=== PATIENT | female | born 1955 | race Two or more races ===

== ENCOUNTER 2017-10-25 00:23 | Emergency (ER) | payer OTHER ==
[~2017-10-25] VITALS: Ht 152.4 cm; Wt 83.9 kg
--- NOTE | 2017-10-25 00:46 | ED.ADGEN ---
Past History Past Medical History: Hypertension Past Surgical History: Alcohol Use: None Drug Use: None Adult General Chief Complaint Chief Complaint " I have bad shoulder pain.. here on the rt.. I fell a couple weeks ago.. but pain is worse today.. I ve had this spasm before..." HPI HPI Patient is a 62 year old female who presents with Rt. shoulder and Trapezius pain. Pt. has had previous problems with muscle spasm and tocolysis and right shoulder and trapezius area. Patient currently has marked muscle spasms and right trapezius. No specific midline tenderness. Patient normally follows with Dr. Rivera. Distal neurovascular intact. Patient is right-hand dominant. Review of Systems Review of Systems Constitutional: Denies fever or chills [] Eyes: Denies change in visual acuity, redness, or eye pain [] HENT: Denies nasal congestion or sore throat [] Respiratory: Denies cough or shortness of breath [] Cardiovascular: No additional information not addressed in HPI [] GI: Denies abdominal pain, nausea, vomiting, bloody stools or diarrhea [] : Denies dysuria or hematuria [] Musculoskeletal: Complaints of severe protocols and muscle spasm right trapezius Integument: Denies rash or skin lesions [] Neurologic: Denies headache, focal weakness or sensory changes [] Endocrine: Denies polyuria or polydipsia [] All other systems were reviewed and found to be within normal limits, except as documented in this note. Family History Family History Noncontributory Current Medications Current Medications Current Medications Medications (Trade) Dose Ordered Sig/Yas Start Time Stop Time Status Last Admin Dose Admin Aspirin (Children'S Aspirin) 324 mg 1X ONCE 10/25/17 01:15 10/25/17 01:16 DC 10/25/17 01:18 324 MG Ketorolac Tromethamine (Toradol) 60 mg 1X ONCE 10/25/17 01:15 10/25/17 01:16 DC 10/25/17 01:19 60 MG Morphine Sulfate (Morphine 10mg Syringe) 10 mg 1X ONCE 10/25/17 01:15 18 01:16 DC 10/25/17 01:19 10 MG Orphenadrine Citrate (Norflex) 60 mg 1X ONCE 10/25/17 01:15 10/25/17 01:16 DC 10/25/17 01:19 60 MG See nursing for home meds Allergies Allergies Allergies Coded Allergies Type Severity Reaction Last Updated Verified No Known Drug Allergies 10/25/17 No Physical Exam Physical Exam Constitutional: In acute distress, non-toxic appearance. [] HENT: Normocephalic, atraumatic, bilateral external ears normal, oropharynx moist, no oral exudates, nose normal. [] Eyes: PERRLA, EOMI, conjunctiva normal, no discharge. [] Neck: Limited l range of motion, and tenderness, torticollis muscle spasm in right trapezius, no stridor. [] Cardiovascular:Heart rate regular rhythm, no murmur [] Lungs & Thorax: Bilateral breath sounds equal apexes on auscultation [] Abdomen: Bowel sounds normal, soft, no tenderness, no masses, no pulsatile masses. Obese. Old surgical scar. Skin: Warm, dry, no erythema, no rash. [] Back: No tenderness, no CVA tenderness. [] Extremities: Right shoulder tenderness, no cyanosis, no clubbing, ROM intact, no edema. Muscle spasms and trapezius area. 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 Neurologic: Alert and oriented X 3, normal motor function, normal sensory function, no focal deficits noted. [] Psychologic: Affect anxious, judgement normal, mood depressed Current Patient Data Vital Signs Vital Signs Date Time Temp Pulse Resp B/P (MAP) Pulse Ox O2 Delivery O2 Flow Rate FiO2 10/25/17 03:15 80 16 147/77 (100) 98 Room Air 10/25/17 01:30 98.2 Lab Results Laboratory Tests Test 10/25/17 01:30 10/25/17 02:00 White Blood Count 9.6 x10^3/uL (4.0-11.0) Red Blood Count 4.54 x10^6/uL (3.50-5.40) Hemoglobin 14.5 g/dL (12.0-15.5) Hematocrit 42.0 % (36.0-47.0) Mean Corpuscular Volume 93 fL (79-100) Mean Corpuscular Hemoglobin 32 pg (25-35) Mean Corpuscular Hemoglobin Concent 34 g/dL (31-37) Red Cell Distribution Width 13.1 % (11.5-14.5) Platelet Count 221 x10^3/uL (140-400) Neutrophils (%) (Auto) 66 % (31-73) Lymphocytes (%) (Auto) 25 % (24-48) Monocytes (%) (Auto) 6 % (0-9) Eosinophils (%) (Auto) 2 % (0-3) Basophils (%) (Auto) 0 % (0-3) Neutrophils # (Auto) 6.4 x10^3uL (1.8-7.7) Lymphocytes # (Auto) 2.4 x10^3/uL (1.0-4.8) Monocytes # (Auto) 0.6 x10^3/uL (0.0-1.1) Eosinophils # (Auto) 0.2 x10^3/uL (0.0-0.7) Basophils # (Auto) 0.0 x10^3/uL (0.0-0.2) Prothrombin Time 11.5 SEC (9.4-11.4) H Prothrombin Time INR 1.1 (0.9-1.1) PTT 26 SEC (23-33) Sodium Level 142 mmol/L (136-145) Potassium Level 3.8 mmol/L (3.5-5.1) Chloride Level 107 mmol/L (98-107) Carbon Dioxide Level 25 mmol/L (21-32) Anion Gap 10 (6-14) Blood Urea Nitrogen 17 mg/dL (7-20) Creatinine 0.8 mg/dL (0.6-1.0) Estimated GFR (Cockcroft-Gault) 72.7 Glucose Level 141 mg/dL (70-99) H Calcium Level 8.5 mg/dL (8.5-10.1) Magnesium Level 2.0 mg/dL (1.8-2.4) Total Bilirubin 0.6 mg/dL (0.2-1.0) Direct Bilirubin 0.1 mg/dL (0.0-0.2) Aspartate Amino Transferase (AST) 20 U/L (15-37) Alanine Aminotransferase (ALT) 39 U/L (14-59) Alkaline Phosphatase 95 U/L (46-116) Creatine Kinase 106 U/L (26-192) Troponin I Quantitative < 0.017 ng/mL (0-0.055) Total Protein 7.9 g/dL (6.4-8.2) Albumin 3.9 g/dL (3.4-5.0) Urine Opiates Screen Pos (NEG) Urine Methadone Screen Neg (NEG) Urine Barbiturates Neg (NEG) Urine Phencyclidine Screen Neg (NEG) Urine Amphetamine/Methamphetamine Neg (NEG) Urine Benzodiazepines Screen Neg (NEG) Urine Cocaine Screen Neg (NEG) Urine Cannabinoids Screen Neg (NEG) Urine Ethyl Alcohol Neg (NEG) EKG EKG My interpretation of EKG shows a irregular sinus rhythm there are some nonspecific inferior changes. No findings of acute STEMI with contralateral changes[] Radiology/Procedures Radiology/Procedures I interpretation of shoulder film shows no obvious fracture or dislocation. Does have findings of degenerative joint changes. My interpretation of chest x- ray shows no obvious fracture dislocation of Pravachol or findings acute cardiopulmonary findings. CT shows multiple level degenerative joint changes with foramen and central Canal stenosis[]. Pt. has reverse lordosis due spasms. Multiple osteophytes and endplate djd. Pt. multilevel stenosis but the worse stenosis appears to be at C4-5 level. No obvious fx. See formal report when available. Course & Med Decision Making Course & Med Decision Making Pertinent Labs and Imaging studies reviewed. (See chart for details) Ice packs and moist heat packs as needed. Flexeril and Vicoprofen up to 3 to 4 x day for marked spasms and pain. Must follow up with primary and neurosurgery. [] Final Impression Final Impression 1. Torticollis spasm[] 2. DJD 3. Cervical neuropathic 4. Multiple level cervical central canal stenosis and foramen stenosis 5. DM 6. HTN Problems: Dragon Disclaimer Dragon Disclaimer This electronic medical record was generated, in whole or in part, using a voice recognition dictation system. DOUG LOPEZ MD Oct 25, 2017 00:46
[2017-10-25] MEDS ORDERED: KETOROLAC 60 MG/2 ML VIAL. IM ONE (01:15)
[2017-10-25] MEDS ORDERED: ORPHENADRINE CITRATE 60 MG/2 ML VIAL. IM ONE (01:15)
[2017-10-25] MEDS ORDERED: ASPIRIN 81 MG TAB.CHEW PO ONE (01:15)
[2017-10-25] MEDS ORDERED: MORPHINE SULFATE 10 MG/ML SYRINGE. SQ ONE (01:15)
--- NOTE | 2017-10-25 01:37 | RAD ---
EXAM: CT CERVICAL SPINE WITHOUT CONTRAST. HISTORY: Fall. Neck pain and right shoulder radiculopathy. TECHNIQUE: Computed tomography of the cervical spine was performed without intravenous contrast. COMPARISON: None. FINDINGS: Reversal of the cervical lordosis may be positional or indicate spasm. There is mild osteoarthritis at C1-2. No fractures are identified. Degenerative disc disease is mild to moderate from C4 through C7. There is no prevertebral soft tissue swelling. At C2-3, there is a small posterior disc bulge. There is mild left facet and uncovertebral osteoarthritis. Left neural foraminal stenosis is mild. At C3-4, there is a moderate posterior disc-osteophyte complex. Bilateral uncovertebral osteoarthritis is mild. Left neural foraminal stenosis is moderate. At C4-5, there is a moderate posterior disc-osteophyte complex. Central canal stenosis is mild. Uncovertebral osteoarthritis is moderate bilaterally. Neural foraminal stenosis is moderate to severe bilaterally. At C5-6, there is a moderate posterior disc-osteophyte complex. Central canal stenosis is mild. Uncovertebral osteoarthritis is moderate bilaterally. Neural foraminal stenosis is mild on the left and moderate on the right. At C6-7, there is a moderate posterior disc-osteophyte complex. Central canal stenosis is mild. Uncovertebral osteoarthritis is mild bilaterally. There is no significant foraminal stenosis. IMPRESSION: 1. No fracture. 2. Reversal of the lordosis may be positional or reflect spasm. 3. Central canal stenosis appears mild from C4-C7. 4. Neural foraminal stenosis is up to moderate/severe at multiple levels, worst at C4-5, as detailed above. *One or more of the following individualized dose reduction techniques were utilized for this examination: 1. Automated exposure control. 2. Adjustment of the mA and/or kV according to patient size. 3. Use of iterative reconstruction technique. Electronically signed by: Mila Menjivar MD (10/25/2017 1:34 AM) [id number]
[2017-10-25 02:18] LABS: BASO % 0 % (0-3); EOS # 0.2 x10^3/uL (0.0-0.7); EOS % 2 % (0-3); HEMOGLOBIN 14.5 g/dL (12.0-15.5); LYMPH # 2.4 x10^3/uL (1.0-4.8); LYMPH % 25 % (24-48); MEAN CORPUSCULAR HEMOGLOBIN 32 pg (25-35); MEAN CORPUSCULAR HGB CONC 34 g/dL (31-37); MEAN CORPUSCULAR VOLUME 93 fL (79-100); MONO # 0.6 x10^3/uL (0.0-1.1); MONO % 6 % (0-9); NEUT # 6.4 x10^3uL (1.8-7.7); NEUT % 66 % (31-73); PLATELET COUNT 221 x10^3/uL (140-400); RED BLOOD COUNT 4.54 x10^6/uL (3.50-5.40); RED CELL DISTRIBUTION WIDTH 13.1 % (11.5-14.5); WHITE BLOOD COUNT 9.6 x10^3/uL (4.0-11.0)
--- NOTE | 2017-10-25 02:24 | EKG ---
[address] [address] Test Date: 2017-10-25 Test Time: 01:16:39 Pat Name: LEI REYNOLDS Department: Room: Gender: F Tip Tester: PAUL : 1955 Requested By: DOUG LOPEZ Order Number: [id number] Reading MD: Narciso Salguero MD Measurements Intervals [place] Rate: 74 P: [place]: QRS: 88 QRSD: 102 T: 30 QT: 370 QTc: 411 Interpretive Statements SR Electronically Signed On 10-26-2017 9:58:39 [employer] SALES REPRESENTATIVE by Narciso Salguero MD
[2017-10-25 02:36] LABS: ALBUMIN 3.9 g/dL (3.4-5.0); CALCIUM 8.5 mg/dL (8.5-10.1); CREATININE 0.8 mg/dL (0.6-1.0); DIRECT BILIRUBIN 0.1 mg/dL (0.0-0.2); GFR 72.7; POTASSIUM 3.8 mmol/L (3.5-5.1); TOTAL BILIRUBIN 0.6 mg/dL (0.2-1.0); TOTAL PROTEIN 7.9 g/dL (6.4-8.2)
[2017-10-25] MEDS ORDERED: CYCL5TAB PO (02:47)
[2017-10-25] MEDS ORDERED: HYDR-79 PO (02:47)
[2017-10-25 02:48] LABS: BARBITURATES NEG (NEG); BENZODIAZEPINES NEG (NEG); CANNABINOIDS NEG (NEG); COCAINE NEG (NEG); METHADONE NEG (NEG); OPIATES POS (NEG); PHENCYCLIDINE NEG (NEG)
[2017-10-25 02:49] LABS: AMPHETAMINE/METHAMPHETAMINE NEG (NEG)
[2017-10-25 03:15] VITALS: BP 147/77
--- NOTE | 2017-10-25 07:15 | RAD ---
Portable chest, 10/25/2017: History: Fall, pain The heart size and pulmonary vascularity are normal. No pulmonary infiltrates are seen. There is no evidence of pleural fluid. Mild spurring is present in the spine. IMPRESSION: No acute cardiopulmonary abnormality is detected.
--- NOTE | 2017-10-25 07:15 | RAD ---
Right shoulder, 3 views, 10/25/2017: History: Fall, neck and shoulder pain No fracture or dislocation is identified. There is minimal arthritic change at the AC joint. IMPRESSION: No acute bony abnormality is detected.
== END 2017-10-25 03:28 | disposition home or self-care (01) ==
LOC: ER 00:23
DX: M43.6 Torticollis (principal); M19.90 Unspecified osteoarthritis, unspecified site; G54.2 Cervical root disorders, not elsewhere classified; M48.02 Spinal stenosis, cervical region; E11.9 Type 2 diabetes mellitus without complications; I10 Essential (primary) hypertension
CPT/HCPCS: 36415; 71045; 72125; 73030; 80048; 80076; 80307; 82550; 83735; 84484; 85025; 85610; 85730; 93005; 96372; 99285; J1885; J2270; J2360; G0479

== ENCOUNTER → 2018-06-04 | Outpatient (CLI) | payer OTHER ==
[~2018-06-04] MED LIST: CYCL5TAB PO; HYDR-79 PO
--- NOTE | 2018-06-04 10:01 | RAD ---
Bone densitometry scan, 06/04/2018: HISTORY: Postmenopausal evaluation The lumbar spine and right hip were examined utilizing a DEXA technique. The bone mineral density in the lumbar spine as measured from the L1-L4 levels is 1.15 g/sq cm. This yields a T score of -0.2 which is in the normal range. The total T score at the right hip is 0.0 which is also in the normal range. IMPRESSION: Normal bone mineral density measurements. Electronically signed by: Gustabo Hale MD (06/04/2018 9:58 AM) [facility]
== END | disposition home or self-care (01) ==
LOC: DXRAD 09:00
PROVIDERS: ATTEND Neuromusculoskeletal Medicine & OMM
DX: I10 Essential (primary) hypertension (principal); E11.9 Type 2 diabetes mellitus without complications; Z87.39 Personal history of other diseases of the musculoskeletal system and connective tissue
CPT/HCPCS: 77080

== ENCOUNTER → 2021-04-26 | Outpatient (CLI) | payer BC ==
[~2021-04-26] MED LIST changes: +HYDR-1179 PO; -HYDR-79 PO
--- NOTE | 2021-04-27 08:40 | RAD ---
EXAM: XR EXAM OF ANKLE_RIGHT 3VIEWS 04/26/2021 2:15 PM CLINICAL INDICATION: Right ankle pain COMPARISON: None TECHNIQUE: 3 views of the right ankle FINDINGS: The tiny acute avulsion fracture to the lateral malleolus. No other fracture. Ankle mortis e is symmetric and talar dome is intact. Mild lateral soft tissue swelling. IMPRESSION: Tiny acute avulsion fracture of the lateral malleolus with mild soft tissue swelling. Electronically signed by: Funmilayo Adam MD (04/27/2021 8:38 AM) [id number]
== END ==
LOC: RAD 14:02
PROVIDERS: ATTEND Physician Assistant
DX: S82.61XA Displaced fracture of lateral malleolus of right fibula, initial encounter for closed fracture (principal); M79.89 Other specified soft tissue disorders; X58.XXXA Exposure to other specified factors, initial encounter; Y93.89 Activity, other specified; Y92.89 Other specified places as the place of occurrence of the external cause; Y99.8 Other external cause status
CPT/HCPCS: 73610